=== PATIENT | female | born 1995 ===

== ENCOUNTER 2022-04-30 10:39 | Emergency (ER) | payer BC, OTHER ==
[2022-04-30] MEDS ORDERED: Tetracaine HCl/PF 0.5% 4 ML Bottle EYELF STA (11:08)
[2022-04-30] MEDS ORDERED: Diphtheria,Pertussis(Acell),Tetanus Vaccine 0.5 ML Syringe IM ONE (11:31)
== END 2022-04-30 12:00 | disposition home or self-care (01) ==
LOC: MW.ED 10:39
DX: S05.02XA Injury of conjunctiva and corneal abrasion without foreign body, left eye, initial encounter (principal); Z23 Encounter for immunization; W22.09XA Striking against other stationary object, initial encounter
CPT/HCPCS: 90471; 90715; 99283-25; J3490